=== PATIENT | female | born 1940 | race Asian ===

== ENCOUNTER 2017-03-20 08:43 | Day surgery (SDC) | payer OTHER ==
[2017-03-19 14:52] VITALS: BMI 24.6
--- NOTE | 2017-03-20 12:02 | HP ---
[facility] - Chief Complaint Chief Complaint: right thumb mass History of Present Illness: right thumb mass History Source: Patient Limitations to Obtaining History: No Limitations - Past Medical History Allergies/Adverse Reactions: Allergies Allergy/AdvReac Type Severity Reaction Status Date / Time No Known Allergies Allergy Verified 03/19/17 14:52 - Current Medications Current Medications: Home Medications Medication Instructions Recorded Multivitamins [Tab-A-Carol Ann] 1 each PO DAILY 03/01/12 Satellite Physical Exam - Physical Examination Vital Signs: Vital Signs Period Temp Pulse Resp BP Sys/Elizabeth Pulse Ox Last 24 Hr 98.2 F 70 18 140/70 100 General Appearance: Well Nourished ENT: Clear Lung: Clear to auscultation Heart: Regular rate & rhythm Breasts: Soft Abdomen: Soft Extremities: No edema Satellite Impression/Plan - Impression/Plan Impression: right thumb mass Operative Procedure: right thumb mass excision Date to be Performed: 03/20/17
[2017-03-20] MEDS ORDERED: ceFAZolin SODIUM 1 GM VIAL IVPB ONE (12:31)
[2017-03-20] MEDS ORDERED: BUPIVACAINE HCL/PF 0.5% (5MG/ML) 10 ML VIAL IJ ONE (12:40)
[2017-03-20] MEDS ORDERED: LIDOCAINE HCL 1%, 10 MG/ML (20ML VIAL) IJ ONE (12:40)
--- NOTE | 2017-03-20 13:02 | OP ---
Operative Note - Note: Operative Date: 03/20/17 Pre-Operative Diagnosis: right thumb mass Operation: excision mass right thumb Post-Operative Diagnosis: Same as Pre-op Surgeon: Armando Mathur Anesthesiologist/RESIDENT HALL DIRECTOR: Caryl Claire Anesthesia: General, Local Specimens Removed: mass, right thumb Estimated Blood Loss (mls): 0 Blood Volume Replaced (mls): 0 Fluid Volume Replaced (mls): 500 Operative Report Dictated: Yes
[2017-03-20] MEDS ORDERED: ACETAMINOPHEN 325 MG TABLET (FP) PO PRN (13:18)
[2017-03-20] MEDS ORDERED: ONDANSETRON 4 MG/2 ML VIAL IVPUSH PRN (13:18)
[2017-03-20 13:20] VITALS: TEMP 98.3
[2017-03-20] MEDS ORDERED: LACTATED RINGERS SOLUTION 1,000 ML IV SCH (13:30)
[2017-03-20 16:23] VITALS: BP 140/50; PULSE 57
--- NOTE | 2017-03-21 12:47 | SPEC ---
DATE OF OPERATION: 03/20/2017 PREOPERATIVE DIAGNOSIS: Right thumb mass. POSTOPERATIVE DIAGNOSIS: Right thumb mass. PROCEDURE: Excision of right thumb mass. SURGEON: Armando Mathur MD ASSISTANTS: None. ANESTHESIOLOGIST: Caryl Claire CRNA ANESTHESIA: MAC anesthesia with local injection of 8 mL of 0.5% Marcaine with lidocaine mix. DRAINS: None. COMPLICATIONS: None. SPECIMENS: Right thumb mass, ganglion cyst. BLOOD LOSS: None. BLOOD GIVEN: None. FLUID REPLACEMENT: 500 mL. INDICATIONS: The patient is a 77-year-old female with a large mass on the dorsal aspect of her right thumb. After understanding the potential risks, complications, alternatives, and benefits of surgical versus non-surgical treatment, the patient elected to undergo this procedure. She understands there is a small risk of recurrence. DESCRIPTION OF THE PROCEDURE: The patient was brought to the operating room, peripheral IV was placed, and intravenous sedation given and 1 gram of intravenous Ancef was given. MAC anesthesia was induced. A tourniquet was applied to the right upper arm. The right upper extremity was prepped and draped in sterile fashion, elevated, and exsanguinated with Esmarch bandage, and the tourniquet was inflated to 250 mmHg. A longitudinal incision was marked out with a marking pen. Marcaine 0.5% of 8 mL with 1% lidocaine mix was injected in and around the surgical incision. The incision was made with a number 15 scalpel blade. Subcutaneous hemostasis achieved with the bipolar cautery. Circumferential dissection was done with the curved iris scissors as well as a number 15 scalpel blade. Great care was taken to preserve all crossing neurovascular structures and some small vessels were cauterized. An Allis forceps was placed onto the wound. At this point the mass popped and ganglion cyst-like fluid was expressed. I was able to trace the ganglion cyst down the stalk to the dorsal aspect of the thumb extensor tendon. It was excised at its base. The area was copiously irrigated and washed out. No other abnormal tissue was visualized or felt. The area was irrigated again, and the skin was closed with horizontal mattress 4-0 nylon sutures. The area was then washed and dried, covered with Xeroform, 4 x 4 gauze, fluff between the fingers, Webril, and Coban. Total tourniquet time was 12 minutes. There were no complications during the case. The patient tolerated the procedure well and was brought to the ambulatory recovery room in stable condition. Lenora [id number]
--- NOTE | 2017-03-21 15:30 | PATH ---
Surgical Pathology Report Patient Name: CRISTAL PALACIOS [facility]. Rec. #: [id number] /Age/Gender: 1940 (Age: 77) / F Account: [id number] Location: [facility] SURGICAL Taken: 03/20/2017 Received: 03/20/2017 Reported: 03/21/2017 Physicians: Armando Mathur M.D. Specimen(s) Received MASS RIGHT THUMB Clinical History Cyst right thumb Final Diagnosis SOFT TISSUE, RIGHT THUMB CYST, REMOVAL: BENIGN TENOSYNOVIAL FIBROCONNECTIVE WITH CYSTIC SPACE WITHOUT DEFINED LINING AND MYXOID DEGENERATION CONSISTENT WITH GANGLION CYST. Electronically Signed Griffin Mustafa M.D. Gross Description Received in formalin labeled "right thumb cyst" is a 0.9 x 0.7 x 0.2 cm pink-pinto, irregular portion of soft tissue, possibly consistent with a cyst. The specimen is trisected and entirely submitted in one cassette. /03/20/201703/20/2017
== END 2017-03-20 16:00 | disposition home or self-care (01) ==
LOC: JASU-SURG 08:43
PROVIDERS: ATTEND Orthopaedic Surgery
PROC: 0LB70ZZ Excision of Right Hand Tendon, Open Approach (ICD-10-PCS; principal; 2017-03-20 11:00)
DX: M67.48 Ganglion, other site (principal)
CPT/HCPCS: 88304-TC; 94760

== ENCOUNTER 2018-03-19 19:49 | Emergency (ER) | payer OTHER ==
--- NOTE | 2018-03-19 19:52 | PDOC ---
History of Present Illness - General Chief Complaint: Edema Stated Complaint: SWELLING TO BOTH FEET POSSIBLE BUG BITE Time Seen by Provider: 03/19/18 19:51 - History of Present Illness Initial Comments: This 78-year-old woman, with no significant past medical history is brought into the emergency room by her daughter with a few week history of progressive lesions on bilateral lower legs. Patient was in the [facility] until approximately 2 weeks ago. During that time, according to her daughter, she worked frequently in her garden. She sustained multiple insect bites of her lower legs (mid calf distally). Since her arrival home, he insect bites have become more inflamed. Patient is complaining of persistent itching and mild pain associated with the lesions. She has not had any fever/chills/red streaking of the area. There has been no purulent discharge from any of the insect bites. Daughter has given her mother Benadryl by mouth without significant relief of the itching. No previous history of insect toxin sensitivity; she is no history of cellulitis/abscesses or resistant organism colonization or infection. No history of poor wound healing Past History - Past Medical History Allergies/Adverse Reactions: Allergies Allergy/AdvReac Type Severity Reaction Status Date / Time No Known Allergies Allergy Verified 03/19/18 19:51 Home Medications: Ambulatory Orders Cephalexin Monohydrate [Keflex -] 500 mg PO Q8H #20 capsule 03/19/18 Triamcinolone 0.5% Cream [Aristocort 0.5% Cream -] 1 applic TP BID #1 tube 03/19 Anemia: No Asthma: No Cancer: No Cardiac Disorders: No CVA: No COPD: No CHF: No Dementia: No Diabetes: No GI Disorders: No Disorders: No HTN: No Hypercholesterolemia: No Liver Disease: No Seizures: No Thyroid Disease: No - Surgical History Abdominal Surgery: No Appendectomy: No Cardiac Surgery: No Cholecystectomy: Yes Lung Surgery: No Neurologic Surgery: No Orthopedic Surgery: No - Immunization History Td Vaccination: (UNKNOWN) - Suicide/Smoking/Psychosocial Hx Smoking Status: No Smoking History: Never smoked Number of Cigarettes Smoked Daily: 0 Hx Alcohol Use: No Drug/Substance Use Hx: No Substance Use Type: None Hx Substance Use Treatment: No Review of Systems - Review of Systems Able to Perform ROS?: Yes Comments:: 12 point review of systems is negative except for what is noted in the history of present illness *Physical Exam - Physical Exam Comments: GENERAL: Elderly female, alert and oriented 3, in no acute distress; no fever recorded HEAD: Normal with no signs of trauma. EYES: PERRLA, EOMI, sclera anicteric, conjunctiva clear. ENT: Ears normal, nares patent, oropharynx clear without exudates. Dry mucous membranes. NECK: Normal range of motion, supple without lymphadenopathy, JVD, or masses. LUNGS: Breath sounds equal, clear to auscultation bilaterally. No wheezes, and no crackles. HEART:Regular rate and rhythm, normal S1 and S2 without murmur, rub or gallop. ABDOMEN:.normal bowel sounds No guarding,tenderness or rebound.No masses No distention. EXTREMITIES: Normal range of motion, no edema. No clubbing or cyanosis. No erythema, or tenderness. NEUROLOGICAL: Cranial nerves II through XII grossly intact. Normal speech. No focal neurological deficits. MUSCULOSKELETAL: Back non-tender to palpation, no CVA tenderness SKIN: Scattered ecchymotic, macular regions with surrounding erythema and mild tenderness of bilateral lower legs and ankles. No fluctuance/no purulent discharge/no lymphangitic streaking. Dorsalis pedis pulses are strongly palpable at midfoot Distal feet are warm and dry with excellent capillary refill Medical Decision Making - Medical Decision Making Clinical presentation most consistent with secondary infection of multiple insect bites. No evidence of purulent discharge or fluctuance of the wounds. No clear evidence of tissue necrosis associated with the lesions. The patient does not appear to be ill/toxic. She has no history of immunocompromise or poor wound healing. Therefore, trial of oral antibiotics warranted. Keflex 500 mg 3 times a day will be begun. First dose of Keflex given here in the emergency room. Triamcinolone 0.5 percent cream prescribed for pruritus. Legs should be elevated; follow-up should be within the next 5 days with patient 's PMD, Dr. Rolon If there is any development of streaking/fever/increased pain/discharge or fluctuance, patient should return to the ER. *DC/Admit/Observation/Transfer Diagnosis at time of Disposition: Infected insect bite of foot Qualifiers: Encounter type: initial encounter Laterality: unspecified laterality Qualified Code(s): S90.869A - Insect bite (nonvenomous), unspecified foot, initial encounter - Discharge Dispostion Disposition: HOME Condition at time of disposition: Stable - Prescriptions Prescriptions: Cephalexin Monohydrate [Keflex -] 500 mg PO Q8H #20 capsule Triamcinolone 0.5% Cream [Aristocort 0.5% Cream -] 1 applic TP BID #1 tube - Referrals Referrals: Ruma Rolno MD [Staff Physician] - 03/24/18 - Patient Instructions Printed Discharge Instructions: DI for Cellulitis -- Adult Additional Instructions: Keflex 500 mg 3 times a day for 1 week Keep lower legs elevated as much as possible Triamcinolone 0.5 mg twice a day as needed for itching Return to ER if there is increase in swelling/redness/pain or if fever develops Follow-up with within the next 5 days - Post Discharge Activity
[2018-03-19 20:09] VITALS: BP 124/64; PULSE 76; TEMP 98.1; BMI 22.9
[2018-03-19] MEDS ORDERED: CEPHALEXIN MONOHYDRATE 500 MG CAPSULE (UD) PO ONE (21:06)
[2018-03-19] MEDS ORDERED: CEPHALEXIN MONOHYDRATE 500 MG CAPSULE (UD) ONE (21:10)
== END 2018-03-19 21:16 | disposition home or self-care (01) ==
LOC: FER 19:49
DX: S90.869A Insect bite (nonvenomous), unspecified foot, initial encounter (principal); W57.XXXA Bitten or stung by nonvenomous insect and other nonvenomous arthropods, initial encounter; Y93.89 Activity, other specified; Y92.9 Unspecified place or not applicable
CPT/HCPCS: 99281-25

== ENCOUNTER 2019-08-15 14:05 | Emergency (ER) | payer OTHER ==
[2019-08-15 14:22] VITALS: BP 133/76; PULSE 90; TEMP 98.1; BMI 21.9
--- NOTE | 2019-08-15 17:25 | PDOC ---
Documentation entered by Rena Dias SCRIBE, acting as scribe for Gregory Brown MD. Gregory Brown MD: This documentation has been prepared by the Larissa flores Adrianna, SCRIBE, under my direction and personally reviewed by me in its entirety. I confirm that the documentation accurately reflects all work, treatment, procedures, and medical decision making performed by me. History of Present Illness - General Chief Complaint: Edema Stated Complaint: LEFT FACE NECK SWELLING - History of Present Illness Initial Comments: The patient is an 79 year old female, with no significant PMH, who presents to the ED for evaluation of left jaw pain and loss of facial motor functions for one week. Patient complains of pain and swelling of the left jaw and cheek over last week. This morning, the patient developed progressively worsening drooping of the left eye and pain over the left side of the head. Patients daughter notes her speech has been normal, but she cannot move the left side of her mouth when speaking. Patient has been able to ambulate as she normally would without any other acute complaints. Allergies: NKA, NKDA Surgical History: Cholecystectomy Social History: Denies EtOH, tobacco, or illicit drug use PCP: Dr. Rolon Past History - Past Medical History Allergies/Adverse Reactions: Allergies Allergy/AdvReac Type Severity Reaction Status Date / Time No Known Allergies Allergy Verified 08/15/19 14:37 Home Medications: Ambulatory Orders Aspirin [Aspirin EC] 81 mg PO DAILY 08/15/19 Erythromycin 0.5% Eye Ointment [Erythromycin 0.5% Eye Ointment -] 1 applic OS HS #1 tube 08/15/19 Valacyclovir HCl [Valtrex -] 1,000 mg PO TID #21 tablet 08/15/19 predniSONE [Deltasone -] 2 tab PO DAILY #10 tablet 08/15/19 Anemia: No Asthma: No Cancer: No Cardiac Disorders: No CVA: No COPD: No CHF: No Dementia: No Diabetes: No GI Disorders: No Disorders: No HTN: No Hypercholesterolemia: No Liver Disease: No Seizures: No Thyroid Disease: No - Surgical History Abdominal Surgery: No Appendectomy: No Cardiac Surgery: No Cholecystectomy: Yes Lung Surgery: No Neurologic Surgery: No Orthopedic Surgery: No - Immunization History Td Vaccination: (UNKNOWN) - Suicide/Smoking/Psychosocial Hx Smoking Status: No Smoking History: Never smoked Number of Cigarettes Smoked Daily: 0 Hx Alcohol Use: No Drug/Substance Use Hx: No Substance Use Type: None Hx Substance Use Treatment: No Review of Systems - Review of Systems Comments:: GENERAL/CONSTITUTIONAL: No fever or chills. No weakness. HEAD, EYES, EARS, NOSE AND THROAT: +Left eye drooping. +Inability to move the left side of the mouth when speaking. +Left-sided head pain. +Left cheek swelling and pain. +Left jaw swelling and pain. No change in vision. No ear pain or discharge. No sore throat. CARDIOVASCULAR: No chest pain or shortness of breath. RESPIRATORY: No cough, wheezing, or hemoptysis. GASTROINTESTINAL: No nausea, vomiting, diarrhea or constipation. GENITOURINARY: No dysuria, frequency, or change in urination. MUSCULOSKELETAL: No joint or muscle swelling or pain. No neck or back pain. SKIN: No rash NEUROLOGIC: No headache, vertigo, loss of consciousness, or change in strength/ sensation. ENDOCRINE: No increased thirst. No abnormal weight change. HEMATOLOGIC/LYMPHATIC: No anemia, easy bleeding, or history of blood clots. ALLERGIC/IMMUNOLOGIC: No hives or skin allergy. *Physical Exam - Vital Signs Last Vital Signs Temp Pulse Resp BP Pulse Ox 98.1 F 90 18 133/76 98 08/15/19 14:17 08/15/19 14:17 08/15/19 14:17 08/15/19 14:17 08/15/19 14:17 - Physical Exam Comments: GENERAL: Awake, alert, and fully oriented, in no acute distress. Cheerful and cooperative. Afebrile, normal vital signs. HEAD: No signs of trauma EYES: PERRLA, EOMI, sclera anicteric, conjunctiva clear ENT: Auricles normal inspection, hearing grossly normal, nares patent, oropharynx clear without exudates. Moist mucosa NECK: Normal ROM, supple, no lymphadenopathy, JVD, or masses LUNGS: Breath sounds equal, clear to auscultation bilaterally. No wheezes, and no crackles HEART: Regular rate and rhythm, normal S1 and S2, no murmurs, rubs or gallops ABDOMEN: Soft, nontender, normoactive bowel sounds. No guarding, no rebound. No masses EXTREMITIES: Normal range of motion, no edema. No clubbing or cyanosis. No cords, erythema, or tenderness NEUROLOGICAL: +Moderately dense left facial palsy, upper and lower, with mild discomfort at the angle of the mandible. +Orbital muscles on the left were functional but weak. +Able to voluntarily close the left eye completely. Remainder of the cranial nerves are intact. No othere focal sensory or motor deficits of the extremities. Gait stable and unimpaired. SKIN: Warm, Dry, normal turgor, no rashes or lesions noted. ED Treatment Course - RADIOLOGY Radiology Studies Ordered: Category Date Time Status HEAD CT WITHOUT CONTRAST [CT] Stat CT Scan 08/15/19 14:43 Ordered Radiograph Interpretation: EXAM#: TYPE/EXAM: RESULT: [id number] CT/HEAD CT WITHOUT CONTRAST Seizures Impression: No significant interval change [id number] volume loss without CT evidence of acute intracranial pathology. Correlate to determine further evaluation and follow-up. Reported By: Delonte Cartagena MD 08/15/19 15:48 Medical Decision Making - Medical Decision Making 08/15/19 17:22 79-year-old female experiencing mild discomfort at the angle of the mandible for one week, today was noted by her daughter to have a facial droop. 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 No visual or other focal neurologic deficits. CT negative Spoke to neurologist, Dr. Pope. Case was thoroughly discussed. He recommended initiation of prednisone for 5 days and Valtrex. I ointment and eye patching fortnight were prescribed, along with artificial tears during the day. Neurologist will follow-up early next week. Patient discharged with her daughter and no pain or other distress to follow-up as directed. *DC/Admit/Observation/Transfer Diagnosis at time of Disposition: Kim's palsy - Discharge Dispostion Disposition: HOME Condition at time of disposition: Stable Decision to Admit order: No - Prescriptions Prescriptions: Erythromycin 0.5% Eye Ointment [Erythromycin 0.5% Eye Ointment -] 1 applic OS HS #1 tube predniSONE [Deltasone -] 2 tab PO DAILY #10 tablet Valacyclovir HCl [Valtrex -] 1,000 mg PO TID #21 tablet - Referrals Referrals: Zachary Pope MD [Staff Physician] - 2 Days - Patient Instructions Printed Discharge Instructions: DI for Kim's Palsy Additional Instructions: Eye ointment and eye patch at bedtime to avoid excessive drying and eye damage Artificial tears hourly during the day Medication as directed See Dr. Pope, neurologist, as directed early next week. Call the office Saturday after 10 AM, dial extension [phone], and speak to Radha to arrange the earliest possible appointment. - Post Discharge Activity
== END 2019-08-15 16:08 | disposition home or self-care (01) ==
LOC: FER 14:05
DX: G51.0 Bell's palsy (principal)
CPT/HCPCS: 70450-TC; 99282-25